=== PATIENT | female | born 1970 | race Caucasian/White ===

== ENCOUNTER → 2017-10-13 | Outpatient (CLI) | payer BC ==
[~2017-10-13] MED LIST: CLARITIN10 MG PO; CORTISPORIN SUS10 ML OT; FLONASE ALLERG9.9 ML NAS; NKHM PO; PREDNISONE10 MG PO; PROAIR HFA8.5 GM INH; ROBITUSSIN AC 110 ML PO; TESSALON PERLE100 MG PO
== END | disposition home or self-care (01) ==
LOC: RESCLI 09:51
DX: Z12.31 Encounter for screening mammogram for malignant neoplasm of breast (principal); Z00.01 Encounter for general adult medical examination with abnormal findings; R68.89 Other general symptoms and signs; J01.90 Acute sinusitis, unspecified

== ENCOUNTER → 2017-10-16 | Outpatient (CLI) | payer BC | END | disposition home or self-care (01) | LOC: MAMMO 04:17 | DX: Z12.31 Encounter for screening mammogram for malignant neoplasm of breast (principal) ==

== ENCOUNTER → 2017-11-03 | Outpatient (CLI) | payer BC ==
[2017-11-03 08:45] LABS: HEMATOCRIT 40.9 % (37.0-47.0); HEMOGLOBIN 12.7 g/dl (12.0-16.0); MEAN CELL VOLUME 96.5 fl (81.0-99.0); MEAN CORPUSCULAR HGB CONC 31.1 g/dl (33.0-37.0); MEAN PLATELET VOLUME 10.2 fl (9.6-12.3); RED BLOOD COUNT 4.24 10*6/uL (4.10-5.10); RED CELL DISTRI WIDTH 13.3 % (0-14.5); WHITE BLOOD COUNT 6.9 10*3/uL (4.8-10.8)
[2017-11-03 09:09] LABS: ALBUMIN 3.5 gm/dl (3.1-4.5); ALKALINE PHOSPHATASE 74 U/L (45-117); BUN 13 mg/dl (7-24); CHLORIDE 105 mmol/L (98-107); CHOLESTEROL 220 mg/dL (<200); CREATININE 0.76 mg/dL (0.55-1.02); HDL CHOLESTEROL 42 mg/dl (40-60); LDL CHOLESTEROL 151 mg/dL (9-159); POTASSIUM 4.2 mmol/L (3.5-5.1); SGOT/AST 14 IU/L (3-35); SGPT/ALT 20 U/L (12-78); SODIUM 139 mmol/L (136-145); TOTAL PROTEIN 7.2 gm/dL (6.4-8.2); TRIGLYCERIDES 136 mg/dl (<150); VLDL CHOLESTEROL 27 mg/dL (6-40)
== END | disposition home or self-care (01) ==
LOC: LAB 08:12
PROVIDERS: Family Medicine
DX: Z00.01 Encounter for general adult medical examination with abnormal findings (principal); R79.89 Other specified abnormal findings of blood chemistry

== ENCOUNTER → 2017-11-05 | Outpatient (CLI) | payer BC | END | disposition home or self-care (01) | LOC: RESCLI 01:23 | DX: E11.65 Type 2 diabetes mellitus with hyperglycemia (principal); R60.9 Edema, unspecified; R06.09 Other forms of dyspnea; M25.572 Pain in left ankle and joints of left foot; G89.29 Other chronic pain; H93.8X3 Other specified disorders of ear, bilateral; E78.00 Pure hypercholesterolemia, unspecified; E66.9 Obesity, unspecified; J30.2 Other seasonal allergic rhinitis; L98.9 Disorder of the skin and subcutaneous tissue, unspecified; Z90.49 Acquired absence of other specified parts of digestive tract ==

== ENCOUNTER → 2017-11-07 | Outpatient (CLI) | payer BC ==
--- NOTE | ~2017-11-07 | EKG ---
[place], [place] ELECTROCARDIOGRAM REPORT NAME: GLEN GODL UNIT #: [id number] ROOM: DOCTOR: MAIDA NAJERA MD BIRTHDATE: [birth year] DOS: 11/07/2017 TIME: 10:46:36. IDENTIFICATION: A 46-year-old female. RATE AND RHYTHM: Normal sinus rhythm at 67 beats per minute. NV interval 136 milliseconds, QRS duration is 84 milliseconds, corrected QT interval is 418 milliseconds, axis is 89. IMPRESSION: Normal sinus rhythm and normal EKG. MAIDA NAJERA MD CM:EKGRPT:ELECTROCARDIOGRAM REPORT [id number] MAIDA NAJERA MD
== END | disposition home or self-care (01) ==
LOC: RAD 02:03
DX: M25.472 Effusion, left ankle (principal); M25.572 Pain in left ankle and joints of left foot

== ENCOUNTER → 2017-11-12 | Outpatient (CLI) | payer BC | END | disposition home or self-care (01) | LOC: CARD 00:16 | DX: R06.02 Shortness of breath (principal); R60.9 Edema, unspecified ==

== ENCOUNTER → 2020-07-12 | Outpatient (CLI) | payer BC ==
[~2020-07-12] MED LIST changes: +ALLEGRA-D 24 H1 EACH PO; +MOBIC15 MG PO
== END | disposition home or self-care (01) ==
LOC: MAMMO 01:03
PROVIDERS: ATTEND Nurse Practitioner Primary Care
DX: Z12.31 Encounter for screening mammogram for malignant neoplasm of breast (principal); N64.89 Other specified disorders of breast

== ENCOUNTER → 2020-07-26 | Outpatient (CLI) | payer BC | END | disposition home or self-care (01) | LOC: COVID19 08:37 | PROVIDERS: ATTEND Surgery | DX: Z01.812 Encounter for preprocedural laboratory examination (principal); Z20.822 Contact with and (suspected) exposure to COVID-19 ==

== ENCOUNTER → 2020-07-31 | Day surgery (SDC) | payer BC ==
[~2020-07-31] VITALS: Ht 154.9 cm; Wt 85.3 kg
[2020-07-31 08:21] VITALS: BP 131/91
[2020-07-31 09:02] VITALS: BP 154/88
[2020-07-31 09:17] VITALS: BP 151/82
[2020-07-31 09:32] VITALS: BP 155/78
== END ==
LOC: SDC 07-27 10:15
PROVIDERS: ATTEND Surgery
DX: Z12.11 Encounter for screening for malignant neoplasm of colon (principal); K62.1 Rectal polyp; M06.9 Rheumatoid arthritis, unspecified; Z90.49 Acquired absence of other specified parts of digestive tract; Z90.710 Acquired absence of both cervix and uterus

== ENCOUNTER → 2020-11-24 | Outpatient (CLI) | payer BC | END | disposition home or self-care (01) | LOC: US 01:23 | PROVIDERS: ATTEND Nurse Practitioner Primary Care | DX: M79.89 Other specified soft tissue disorders (principal); E55.9 Vitamin D deficiency, unspecified; E11.65 Type 2 diabetes mellitus with hyperglycemia; T14.8XXA Other injury of unspecified body region, initial encounter; X58.XXXA Exposure to other specified factors, initial encounter; Y93.89 Activity, other specified; Y92.89 Other specified places as the place of occurrence of the external cause; Y99.8 Other external cause status ==

== ENCOUNTER → 2021-03-16 | Outpatient (CLI) | payer BC ==
[2021-03-16 08:18] LABS: CHOLESTEROL 206 mg/dL (<200); LDL CHOLESTEROL 126 mg/dL (9-159); TRIGLYCERIDES 180 mg/dl (<150)
== END | disposition home or self-care (01) ==
LOC: LAB 07:35
PROVIDERS: ATTEND Nurse Practitioner Primary Care
DX: E11.65 Type 2 diabetes mellitus with hyperglycemia (principal); E55.9 Vitamin D deficiency, unspecified

== ENCOUNTER → 2021-05-15 | Outpatient (CLI) | payer BC | END | disposition home or self-care (01) | LOC: CARD 07:31 | PROVIDERS: ATTEND Internal Medicine Cardiovascular Disease | DX: R06.02 Shortness of breath (principal); E78.5 Hyperlipidemia, unspecified; I10 Essential (primary) hypertension ==

== ENCOUNTER → 2022-05-23 | Outpatient (CLI) | payer BC | END | disposition home or self-care (01) | LOC: MAMMO 00:14 | PROVIDERS: ATTEND Family Medicine | DX: Z12.31 Encounter for screening mammogram for malignant neoplasm of breast (principal); N63.11 Unspecified lump in the right breast, upper outer quadrant ==

== ENCOUNTER → 2022-05-28 | Outpatient (CLI) | payer BC | END | disposition home or self-care (01) | LOC: US 01:54 | PROVIDERS: ATTEND Family Medicine | DX: N63.11 Unspecified lump in the right breast, upper outer quadrant (principal); R92.8 Other abnormal and inconclusive findings on diagnostic imaging of breast ==

== ENCOUNTER → 2022-10-23 | Outpatient (CLI) | payer OTHER | END | disposition home or self-care (01) | LOC: CARD 01:47 | PROVIDERS: ATTEND Internal Medicine Cardiovascular Disease | DX: R60.0 Localized edema (principal) ==

== ENCOUNTER → 2022-10-31 | Outpatient (CLI) | payer OTHER | END | disposition home or self-care (01) | LOC: RAD 12:50 | PROVIDERS: ATTEND Family Medicine | DX: M77.32 Calcaneal spur, left foot (principal); M79.89 Other specified soft tissue disorders; M25.572 Pain in left ankle and joints of left foot ==

== ENCOUNTER → 2023-07-30 | Outpatient (CLI) | payer OTHER | END | disposition home or self-care (01) | LOC: MAMMO 00:58 | PROVIDERS: ATTEND Family Medicine | DX: Z12.31 Encounter for screening mammogram for malignant neoplasm of breast (principal) ==